=== PATIENT | female | born 1975 | race Asian ===

== ENCOUNTER 2019-04-18 17:09 | Emergency (ER) | payer MEDICAID ==
[~2019-04-18] VITALS: Ht 160 cm; Wt 73.9 kg
[2019-04-18 17:18] VITALS: BP_SYST 120
--- NOTE | 2019-04-18 17:22 | NUR ---
Patient triaged and placed in [place]. VSS and patient appears in no acute distress at this time. Accompanied by ems, awaiting available bed, and MD notified of need for MSE.
--- NOTE | 2019-04-18 18:35 | NUR ---
Patient to ER bed 03 for evaluation. Side rails up.
--- NOTE | 2019-04-18 18:50 | NUR ---
PT CAME TO ER FOR SEVERE LOWER BACK PAIN. PT HX OF BREAST CA, RECEIVED CHEMO LAST WEEK. CURRENTLY C/O PAIN AT 5/10, RR EVEN AND UNLABORED, ON MDS NURSE, AWAITING MD.
--- NOTE | 2019-04-18 18:55 | NUR ---
ER at bedside examining patient.
--- NOTE | 2019-04-18 19:10 | NUR ---
REPORT GIVEN TO HOLLI VALDES AND MONICA STEWART
[2019-04-18] MEDS ORDERED: MORPHINE 4 MG/ML INJ. SYRINGE IVP ONE ×2 (19:15→20:15)
[2019-04-18] MEDS ORDERED: ONDANSETRON HCL 4 MG/2 ML VIAL IVP ONE (19:45)
[2019-04-18] MEDS ORDERED: ONDANSETRON HCL 4 MG/2 ML VIAL ONE (19:49)
--- NOTE | 2019-04-18 20:13 | NUR ---
ER Dr. Miller at bedside examining patient.
[2019-04-18 20:25] LABS: HEMATOCRIT 34.7 % (36-48); HEMOGLOBIN 11.5 g/dL (12.0-16.0); MEAN CORPUSCULAR HEMOGLOBIN 29 pg (27-31); MEAN CORPUSCULAR HGB CONC 33 % (32-36); MEAN CORPUSCULAR VOLUME 87 fL (79.0-98.0); PLATELET COUNT (AUTO) 157 K/uL (130-430); RED BLOOD CELL COUNT(AUTO) 3.98 MIL/uL (4.2-6.2); WHITE BLOOD COUNT (AUTO) 5.7 K/uL (4.8-10.8)
[2019-04-18 20:30] LABS: BILIRUBIN,URINE NEGATIVE (NEGATIVE); BLOOD, URINE 3+ (NEGATIVE); CLARITY/URINE SL CLOUDY (CLEAR); COLOR,URINE RED (YELLOW); GLUCOSE,URINE NEGATIVE (NEGATIVE); KETONES,URINE NEGATIVE (NEGATIVE); LEUKOCYTE ESTERASE ,URINE TRACE (NEGATIVE); NITRITE, URINE NEGATIVE (NEGATIVE); PROTEIN URINE 2+ (NEGATIVE); UROBILINOGEN,URINE 0.2 (0.2-1.0)
[2019-04-18 20:37] LABS: CALCIUM 8.9 mg/dL (8.4-11.0); CREATININE 0.67 mg/dL (0.55-1.30); POTASSIUM 3.6 mmol/L (3.5-5.1)
[2019-04-18 20:41] LABS: BACTERIA,URINE FEW /HPF (None Seen); MUCUS,URINE None Seen /LPF (None Seen); RBC,URINE >100 /HPF (0-3)
[2019-04-18 20:42] LABS: ALBUMIN 3.8 g/dL (3.4-4.8); TOTAL BILIRUBIN 0.1 mg/dL (0.0-1.0)
[2019-04-18 20:46] LABS: BAND % (MANUAL) 8 % (0-6); BASOPHILS % (MANUAL) 0 % (0-2); EOSINOPHILS % (MANUAL) 2 % (0-7); LYMPHOCYTES % (MANUAL) 25 % (20-46); METAMYELOCYTES % 1 % (0-0); MONOCYTES % (MANUAL) 11 % (0-11)
[2019-04-18 22:00] VITALS: BP_SYST 126
--- NOTE | 2019-04-18 22:00 | NUR ---
Patient given written and verbal discharge instructions and verbalizes understanding. ER MD Miller discussed with patient the results and treatment provided. Patient in stable condition. ID arm band removed. IV catheter removed intact and dressing applied, no active bleeding. No Rx given. Patient educated on pain management and to follow up with PMD. Pain Scale 0. Opportunity for questions provided and answered. Medication side effect fact sheet provided.
== END 2019-04-18 22:00 | disposition home or self-care (01) ==
LOC: SED 17:09
DX: M54.5 Low back pain (principal); Z85.3 Personal history of malignant neoplasm of breast; Z85.238 Personal history of other malignant neoplasm of thymus
CPT/HCPCS: 36415; 74176; 80053; 81000; 81025; 83690; 85007; 85027; 96374; 96375; 99284; J2270; J2405